=== PATIENT | female | born 1955 | race Caucasian/White ===

== ENCOUNTER 2023-12-29 13:45 | Emergency (ER) | payer OTHER, SELFPAY ==
[2023-12-29 13:46] VITALS: BP 159/86
[2023-12-29 13:57] LABS: Glucose - Point of Care 318 mg/dl (70-99)
[2023-12-29 14:39] LABS: % Basophils 0.8 % (0-2); % Eosinophils 5.8 % (0-6); % Immature Granulocytes 0.3 % (0-0.5); % Lymphocytes 14.9 % (20.5-51.1); % Monocytes 6.4 % (1.7-9.3); % Neutrophils 71.8 % (42.2-75.2); Absolute Basophils 0.1 10^3/uL (0-0.2); Absolute Eosinophils 0.6 10^3/uL (0-0.7); Absolute Lymphocytes 1.5 10^3/uL (1.2-3.4); Absolute Monocytes 0.6 10^3/uL (0.1-0.6); Absolute Neutrophils 7.1 10^3/uL (1.4-6.5); Hematocrit 37.2 % (37.0-47.0); Hemoglobin 13.2 g/dL (12.0-16.0); Mean Corp Hgb Conc. 35.5 g/dL (33.0-37.0); Mean Corpuscular Hgb 28.8 pg (27.0-31.0); Mean Corpuscular Volume 81.2 fL (81.0-99.0); Mean Platelet Volume 10.2 fL (7.4-10.4); Nucleated Red Blood Cells % 0 %; Platelet Count 279 10^3/uL (130-400); Red Blood Cell Count 4.58 10^6/uL (4.20-5.40); Urine Albumin Negative (Neg - Trace); Urine Bilirubin Negative (Negative); Urine Character Clear (Clear); Urine Color Yellow; Urine Glucose 3+ (Negative); Urine Ketone 1+ (Negative); Urine Leukocyte Trace (Negative); Urine Nitrite Negative (Negative); Urine Occult Blood 1+ (Negative); Urine Specific Gravity 1.015 (<1.030); Urine Urobilinogen Negative (Neg - 1+); White Blood Cell Count 9.9 10^3/uL (4.8-10.8)
[2023-12-29 14:54] LABS: Urine Bacteria Few (Negative); Urine White Cell 0-2 /HPF (0-5)
[2023-12-29 15:01] LABS: Venous Blood Gas B.E. 2.5 mmol/L (-4 to +4); Venous Blood Gas HCO3 27.9 mmol/L (22-27); Venous Blood Gas pCO2 45 mmHg (35-48); Venous Blood Gas pO2 155 mmHg (30-50)
[2023-12-29 15:02] LABS: ALT (SGPT) 16 U/L (0-35); AST (SGOT) 25 U/L (14-36); Albumin 4.4 g/dl (3.5-5.0); Alkaline Phosphatase 102 U/L (38-126); Blood Urea Nitrogen 16 mg/dl (7-17); Calcium 9.2 mg/dl (8.4-10.2); Carbon Dioxide 25 mmol/L (22-30); Chloride 98 mmol/L (98-107); Glucose 313 mg/dl (70-99); Sodium 129 mmol/L (135-145); Total Bilirubin 0.7 mg/dl (0.2-1.3); Total Protein 7.1 g/dl (6.3-8.2); Venous Blood Gas O2 Therapy RA; eGFR > 60.00
[2023-12-29 15:08] LABS: B-Hydroxybutyrate 0.24 mmol/L (0.02-0.27)
--- NOTE | 2023-12-29 15:20 | ED.GENMED ---
History of Present Illness
General
Chief Complaint: Blood Sugar Problem
Source: patient
Time Seen by Provider: 12/29/23 14:47
Travel History
Have you had any contact with someone who has COVID-19?: No
Do you have any symptoms of coronavirus? Fever > 100 degrees, chills, cough, shortness of breath, sore throat, loss of taste or smell, muscle aches, or headache?: No
History of Present Illness
History of Present Illness:
68-year-old female presents to the emergency room due to elevated blood glucose levels. Patient has been recently treated for breast cancer. Recently the blood work that she receives on a regular basis showed her glucose to be elevated. She has
seen her family doctor for this and the plan has been to closely monitor her glucose before deciding to initiate therapy as her hemoglobin A1c was 6 point something. Patient obtained a Dexcom and she noted her glucose level was up to 400 today.
She feels fine. She denies any nausea, vomiting, diarrhea or lightheadedness. She does not feel she is urinating more than normal. She denies increased thirst but her mouth is always dry secondary to the side effects of chemo.
Past History
Past History
ED Past Medical History: HTN and Other (Endometriosis)
ED Past Surgical History: Gynecological (Laparoscopy for endometriosis), Tonsilectomy and Other (Partial thyroidectomy)
Social History
Tobacco: Non-smoker
Alcohol: None
Personal:
Living: with family
Employment: Employed
Family History
Family History: Negative Early CAD
Phy Exam
Physical Exam
Physical Exam:
General: Awake, Alert, Oriented X3. Very thin but no acute distress
Vitals: unremarkable
Head: Atraumatic
Eyes: Pupils equal, EOMI
Throat: Airway intact, no exudates, dry mucosa
Neck: Trachea midline
Lungs: Clear and equal b/l
Heart: Regular rate, no murmurs
Abd: Soft, Nontender, No pulsatile mass
Neuro: Nonfocal
Skin: Warm, dry, no rash
Extremities: pulses equal b/l, no edema
Course
Orders/Labs/Results
Orders:
Orders
12/29/23 14:26
B-Hydroxybutyrate Urgent
Complete Blood Count/With Diff Urgent
Comprehensive Metabolic Panel Urgent
Urine Culture Reflexed from UA [Urinalysis Reflex To Culture] Urgent
Date Specimen was Collected: 12/29/23
Time Specimen was Collected: 14:25
Urine Microscopic Reflex Cult Urgent
Venous Blood Gas Urgent
%Oxygen/Room Air: RA
12/29/23 15:19
0.9% Sodium Chloride 1000 ml [Nss] 1,000 ml IV BOLUS
Abnormal Lab Results
12/29/23 12/29/23
13:53 14:26
Absolute Neuts (auto) 7.1 H 10^3/uL
(1.4-6.5)
Lymphocytes % 14.9 L %
(20.5-51.1)
VBG pO2 155 H mmHg
(30-50)
VBG HCO3 27.9 H mmol/L
(22-27)
Sodium 129 L mmol/L
(135-145)
Glucose 313 H mg/dl
(70-99)
Urine Ketones 1+ A
(Negative)
Ur Occult Blood Reflex 1+ A
(Negative)
Leukocyte Esterase Rfl Trace A
(Negative)
Urine RBC 7-10 A /HPF
(0-2)
Urine Bacteria (Reflex) Few A
(Negative)
Urine Glucose 3+ A
(Negative)
POC Glucose 318 H mg/dl
(70-99)
12/29/23 14:26
12/29/23 14:26
Vital Signs
Initial and Last Documented VS:
Initial Vital Signs
Temp Pulse Resp BP Pulse Ox
98.3 F 96 16 159/86 98
12/29/23 13:46 12/29/23 13:46 12/29/23 13:46 12/29/23 13:46 12/29/23 13:46
Last Documented Vital Signs
Temp Pulse Resp BP Pulse Ox
98.3 F 96 16 159/86 98
12/29/23 13:46 12/29/23 13:46 12/29/23 13:46 12/29/23 13:46 12/29/23 13:46
MDM/Problems Addressed
Differential Diagnosis Includes:
Hyperglycemia, type 2 diabetes, type 1 diabetes
MDM/Problems Addressed:
Patient's labs show pseudo hyponatremia. Her glucose is 313. No evidence for DKA. Will hydrate. Start Glucophage. Patient has a normal GFR so Glucophage should be reasonable. Will start on 500 mg once a day.
*Critical Care Note
Total Time (30-74mins, 75-104mins- exclusive of procedures): Not Applicable
ED Attending Note
-
Portions of this chart may have been created with voice recognition software.� Occasional wrong word or��sound alike� substitutions may have occurred due to the inherent limitations of voice recognition software.
Discharge Plan
Departure
Patient Disposition: Home (Routine Discharge)
Date of Disposition: 12/29/23
Time of Disposition: 16:35
Patient with high blood pressure during this ER visit?: Yes
Condition: Good
Discharge Problem:
Hyperglycemia
Prescriptions:
New
metformin 500 mg tablet
500 mg PO DAILY Qty: 30 0RF
No Action
multivitamin [Daily Multiple] 1 EACH tablet
1 ea PO DAILY
aspirin [Aspir-Low] 81 MG tablet,delayed release (DR/EC)
1 tab PO DAILY
Co Q-10
1 tab PO . DIRECTED
Referrals:
Angela Ko PA-C [Family Provider] -
Activity Restrictions/Additional Instructions:
Take metformin once a day with a meal. Follow up with your primary care doctor and endocriniology. Return to [facility] ER if you are having soo sugars and feel lightheaded, nauseous, abdominal pain or are concerned you are not doing well.
Interventions
Interventions:
*Risk Screen - Suicide Last Done: 12/29/23 15:40
*General Assessment Last Done: 12/29/23 15:39
*Neglect/Abuse Screening Last Done: 12/29/23 15:39
*ED COVID-19 Vaccine History Last Done: 12/29/23 15:39
ED- Neurological Assessment Last Done: 12/29/23 16:39
[2023-12-29] MEDS: NSS 1000 IV (15:32)
[2023-12-29 15:36] VITALS: BMI 17.4
== END 2023-12-29 17:48 | disposition home or self-care (01) ==
LOC: EMR 13:45
PROVIDERS: Emergency Medicine; EMERGENCY PHYSICIAN Emergency Medicine; FAMILY PHYSICIAN Physician Assistant Medical
DX: R73.9 Hyperglycemia, unspecified (principal); I10 Essential (primary) hypertension
CPT/HCPCS: 99284; 96360; 80053; 81003; 81015; 82010; 82805; 82962; 85025

== ENCOUNTER 2024-07-06 09:51 | Emergency (ER) | payer OTHER, SELFPAY ==
[2024-07-06 09:57] VITALS: BP 134/76
[2024-07-06 10:44] LABS: % Basophils 1.1 % (0-2); % Eosinophils 3.5 % (0-6); % Immature Granulocytes 0.3 % (0-0.5); % Lymphocytes 14.9 % (20.5-51.1); % Monocytes 5.7 % (1.7-9.3); % Neutrophils 74.5 % (42.2-75.2); Absolute Basophils 0.1 10^3/uL (0-0.2); Absolute Eosinophils 0.2 10^3/uL (0-0.7); Absolute Monocytes 0.4 10^3/uL (0.1-0.6); Absolute Neutrophils 4.8 10^3/uL (1.4-6.5); Hematocrit 39.4 % (37.0-47.0); Hemoglobin 13.4 g/dL (12.0-16.0); Mean Corpuscular Hgb 29.5 pg (27.0-31.0); Mean Corpuscular Volume 86.8 fL (81.0-99.0); Mean Platelet Volume 9.8 fL (7.4-10.4); Nucleated Red Blood Cells % 0 %; Platelet Count 249 10^3/uL (130-400); Red Blood Cell Count 4.54 10^6/uL (4.20-5.40); Red Cell Dist. Width 13.5 % (11.5-14.5); White Blood Cell Count 6.5 10^3/uL (4.8-10.8)
[2024-07-06 10:54] LABS: ALT (SGPT) 24 U/L (0-35); AST (SGOT) 30 U/L (14-36); Albumin 4.1 g/dl (3.5-5.0); Alkaline Phosphatase 85 U/L (38-126); Blood Urea Nitrogen 23 mg/dl (7-17); Calcium 9.3 mg/dl (8.4-10.2); Carbon Dioxide 27 mmol/L (22-30); Chloride 101 mmol/L (98-107); Glucose 164 mg/dl (70-99); Lipase 187 U/L (23-300); Potassium 3.9 mmol/L (3.5-5.1); Sodium 138 mmol/L (135-145); Total Bilirubin 0.9 mg/dl (0.2-1.3); Total Protein 6.4 g/dl (6.3-8.2); eGFR > 60.00
--- NOTE | 2024-07-06 10:57 | ED.GENMED ---
History of Present Illness
General
Chief Complaint: Flank Pain
Source: patient
Time Seen by Provider: 07/06/24 10:05
History of Present Illness
History of Present Illness:
68-year-old female with past medical history of atrial fibrillation, hypertension, newly diagnosed insulin-dependent diabetes, breast cancer presenting to the emergency department for evaluation of left-sided flank pain accompanied with hematuria
and nausea, pain and nausea now improved after taking 200 mg of ibuprofen. Patient states that earlier in the week she was treated for urinary tract infection after noticing a little bit of blood in her urine. Patient states she had a urinalysis
and urine culture done but is unsure of the results of the culture. Denies any fevers, chills, rigors, bowel changes, urinary frequency/urgency/dysuria. Patient notes that on a PET scan she had done for her breast cancer there were 2 kidney stones
noted within the left side of her kidney. No other concerns at this time
Past History
Past History
ED Past Medical History: Arrthythmia, Cancer, HTN, IDDM and Other (Endometriosis)
ED Past Surgical History: Gynecological (Laparoscopy for endometriosis), Tonsilectomy and Other (Partial thyroidectomy)
Social History
Tobacco: Non-smoker
Alcohol: None
Drug: None
Personal:
Living: with family
Employment: Employed
Family History
Family History: Negative Early CAD
Review of Systems
Review of Systems
All Other Systems: ROS reviewed and negative except as documented in HPI and ROS
Phy Exam
Physical Exam
Physical Exam:
GENERAL: Alert , in no apparent distress, very pleasant
EYE: clear conjunctiva b/l
HEAD: NCAT
ENT: mmm.
CARDIAC: Regular rate and rhythm .
LUNGS: Clear breath sounds bilaterally, no acute respiratory distress, no wheezes/rales/rhonchi
ABDOMEN: Soft, without focal tenderness, no r/g, mild to moderate left CVA tenderness
NEUROLOGICAL: Alert and oriented
SKIN: Warm and dry, skin intact.
MUSCULOSKELETAL: well perfused.
PSYCH: Normal and appropriate interaction.
Scores
Heart Failure Risk
Heart Failure Risk Score: Not Applicable
Heart Score for Chest Pain Patients
STEMI patient?: Not applicable
Withdrawal Assessment of Alcohol
Withdrawal Assessment Completed?: Not applicable
Course
Orders/Labs/Results
Orders:
Orders
07/06/24 10:22
Complete Blood Count/With Diff Urgent
Comprehensive Metabolic Panel Urgent
Lipase Urgent
07/06/24 10:54
CT Abd/pel Without Iv Or Oral Urgent
Comment:
Reason For Exam: left flank pain, recent UTI, known stones
Urinalysis Reflex To Culture Urgent
Date Specimen was Collected: 07/06/24
Time Specimen was Collected: 10:49
Urine Microscopic Reflex Cult Urgent
Urine Culture Urgent
KATHY Source: U
Specimen Description:
Date Specimen was Collected: 07/06/24
Time Specimen was Collected: 10:49
0.9% Sodium Chloride 1000 ml [Nss] 1,000 ml IV BOLUS
Abnormal Lab Results
07/06/24 07/06/24
10:22 10:54
Absolute Lymphs (auto) 1.0 L 10^3/uL
(1.2-3.4)
Lymphocytes % 14.9 L %
(20.5-51.1)
BUN 23 H mg/dl
(7-17)
Glucose 164 H mg/dl
(70-99)
Urine Ketones 1+ A
(Negative)
Ur Occult Blood Reflex 4+ A
(Negative)
Urine Nitrite (Reflex) Positive A
(Negative)
Urine Bilirubin 1+ A
(Negative)
Leukocyte Esterase Rfl 1+ A
(Negative)
Urine RBC >100 A /HPF
(0-2)
Urine Bacteria (Reflex) Moderate A
(Negative)
Urine Albumin (Reflex) 1+ A
(Neg - Trace)
07/06/24 10:22
07/06/24 10:22
Vital Signs
Initial and Last Documented VS:
Initial Vital Signs
Temp Pulse BP Pulse Ox
97.7 F 74 134/76 99
07/06/24 09:57 07/06/24 09:57 07/06/24 09:57 07/06/24 09:57
Last Documented Vital Signs
Temp Pulse BP Pulse Ox
97.7 F 74 134/76 99
07/06/24 09:57 07/06/24 09:57 07/06/24 09:57 07/06/24 09:57
MDM/Problems Addressed
Differential Diagnosis Includes:
Renal/ureteral colic, pyelo, UTI
MDM/Problems Addressed:
68 y/o female presenting to ED with left sided flank pain, recent treatment with macrobid for UTI. Reviewed patients [facility] portal which showed neg urine culture and contaminated sample. Will check labs, urine/culture, and CT scan for further
evaluation. Patient declining meds for pain/nausea at present. Disposition pending
*Radiology
Radiology exam reviewed: radiology read reviewed
*Pulse Oximetry
Patient hypoxic: no
*Critical Care Note
Total Time (30-74mins, 75-104mins- exclusive of procedures): Not Applicable
Patient Management
Discussion with other providers: Motor Vehicle Inspector
Escalation/DeEscalation of care consider admission/obs:
Patient CT scan shows a 4-5mm proximal left ureteral stone. UA with nitrite positive urine and 1+ leuks but only 3-5WBC. Case d/w identification officer urology, Dr. Rodarte, who reviewed patients scan and labs/UA. Patient okay for d/c home with flomax and
quinolone (due to allergies). Patient to f/u in office. NSAIDs PRN for pain. Aware of return precautions to ER
ED Attending Note
-
Portions of this chart may have been created with voice recognition software.� Occasional wrong word or��sound alike� substitutions may have occurred due to the inherent limitations of voice recognition software.
Discharge Plan
Departure
Patient Disposition: Home (Routine Discharge)
Date of Disposition: 07/06/24
Time of Disposition: 12:18
Patient with high blood pressure during this ER visit?: No
Discharge Problem:
Ureterolithiasis, Acute UTI
Instructions: Kidney Stones (DC)
Prescriptions:
New
ciprofloxacin HCl [Cipro] 500 mg tablet
500 mg PO BID 7 Days Qty: 14 0RF
tamsulosin [Flomax] 0.4 mg capsule
0.4 mg PO DAILY Qty: 14 0RF
No Action
multivitamin [Daily Multiple] 1 EACH tablet
1 ea PO DAILY
aspirin [Aspir-Low] 81 MG tablet,delayed release (DR/EC)
1 tab PO DAILY
Co Q-10
1 tab PO . DIRECTED
metformin 500 mg tablet
500 mg PO DAILY Qty: 30 0RF
Referrals:
Angela Ko PA-C [Family Provider] -
Jamel Rodarte MD [Active] - (Urology)
Interventions
Interventions:
*Risk Screen - Suicide Last Done: 07/06/24 12:45
*General Assessment Last Done: 07/06/24 13:05
*Neglect/Abuse Screening Last Done: 07/06/24 12:45
ED- Fall Risk Assessment Last Done: 07/06/24 13:05
*ED COVID-19 Vaccine History Last Done: 07/06/24 13:05
*Nursing Disposition Last Done: 07/06/24 13:05
PB-Njgsqm-Rbuyjpycma Assessment Last Done: 07/06/24 12:45
ED-Female Genitourinary Assessment Last Done: 07/06/24 12:45
Discharge Date and Time
Discharge Date/Time: 07/06/24 13:06
Print Language: ANDORRAN
[2024-07-06] MEDS: NSS 1000 IV (11:02)
[2024-07-06 11:06] LABS: Urine Albumin 1+ (Neg - Trace); Urine Bilirubin 1+ (Negative); Urine Character Slightly Cloudy (Clear); Urine Color Amber; Urine Glucose Negative (Negative); Urine Ketone 1+ (Negative); Urine Leukocyte 1+ (Negative); Urine Nitrite Positive (Negative); Urine Occult Blood 4+ (Negative); Urine Urobilinogen 1+ (Neg - 1+)
[2024-07-06 11:25] LABS: Urine Red Blood Cell >100 /HPF (0-2)
[2024-07-06 11:27] LABS: Urine Bacteria Moderate (Negative)
[2024-07-06 11:28] LABS: Urine Squamous Cell 0-2 /LPF (Few)
== END 2024-07-06 13:06 | disposition home or self-care (01) ==
LOC: EMR 09:51
PROVIDERS: Physician Assistant Medical; EMERGENCY PHYSICIAN Student in an Organized Health Care Education/Training Program; FAMILY PHYSICIAN Physician Assistant Medical
DX: N20.1 Calculus of ureter (principal); N39.0 Urinary tract infection, site not specified; E11.9 Type 2 diabetes mellitus without complications; I10 Essential (primary) hypertension; I48.91 Unspecified atrial fibrillation; Z79.4 Long term (current) use of insulin; Z85.3 Personal history of malignant neoplasm of breast
CPT/HCPCS: 99284; 96360; 74176; 80053; 81003; 81015; 83690; 85025; 87086

== ENCOUNTER → 2024-07-28 10:07 | Outpatient (REF) | payer OTHER, SELFPAY | LOC: RAD 10:07 | PROVIDERS: FAMILY PHYSICIAN Physician Assistant Medical | DX: C50.412 Malignant neoplasm of upper-outer quadrant of left female breast (principal); L50.9 Urticaria, unspecified; K59.03 Drug induced constipation; R11.2 Nausea with vomiting, unspecified | CPT/HCPCS: 71250 ==

== ENCOUNTER → 2024-12-30 13:29 | Outpatient (REF) | payer OTHER, SELFPAY | LOC: RAD 13:29 | PROVIDERS: ATTENDING PHYSICIAN Specialist; FAMILY PHYSICIAN Physician Assistant Medical | DX: N20.0 Calculus of kidney (principal) | CPT/HCPCS: 74018 ==

== ENCOUNTER → 2025-02-07 10:49 | Outpatient (REF) | payer OTHER, SELFPAY | LOC: RAD 10:49 | PROVIDERS: ATTENDING PHYSICIAN Internal Medicine Hematology & Oncology; FAMILY PHYSICIAN Physician Assistant Medical | DX: C50.412 Malignant neoplasm of upper-outer quadrant of left female breast (principal); L50.9 Urticaria, unspecified; K59.03 Drug induced constipation; R11.2 Nausea with vomiting, unspecified | CPT/HCPCS: 71250 ==

== ENCOUNTER → 2025-02-23 12:22 | Outpatient (REF) | payer OTHER, SELFPAY | LOC: RAD 12:22 | PROVIDERS: ATTENDING PHYSICIAN Specialist; FAMILY PHYSICIAN Physician Assistant Medical | DX: N20.0 Calculus of kidney (principal) | CPT/HCPCS: 74018 ==

== ENCOUNTER → 2025-08-22 11:15 | Outpatient (REF) | payer OTHER, SELFPAY | LOC: RAD 11:15 | PROVIDERS: ATTENDING PHYSICIAN Internal Medicine Hematology & Oncology; FAMILY PHYSICIAN Physician Assistant Medical | DX: C50.412 Malignant neoplasm of upper-outer quadrant of left female breast (principal) | CPT/HCPCS: 71250 ==